=== PATIENT | male | born 1950 | race Caucasian/White ===

== ENCOUNTER → 2017-07-08 | Outpatient (CLI) | payer BC, MEDICARE ==
[~2017-07-08] MED LIST: ASPI1TAB57 PO; ASPI81TA82 PO; COMMODE 3-IN-11 MIS; HYDR-3129 PO; HYDR-3580 PO; HYDR-3799 PO; HYDR10TA23 PO; HYDR12.56 PO; LISI-515 PO; LISI40TA PO; METO25CR PO; METO25TA3 PO; MULT-65 PO; NITR0.4S SL; OMEP20TA93 PO; OMPR20CCR PO; POTA10CA PO; ROSU40 PO; SIMV40TA PO; TORS20TA PO; TRAM50TA PO; VITA100021 SL; WALKER WHEELS/F1 MIS; XARE10TA PO; XARE20TA PO; Z.0.COMMODE-3:1; Z.0.WALKERFRONT
[2017-07-08 09:41] LABS: AUTOMATED NEUTROPHIL # 5.8 TH/MM3 (1.8-7.7); BASOPHIL % 0.6 % (0.0-2.0); EOSINOPHIL # 0.1 TH/MM3 (0-0.4); EOSINOPHIL % 1.6 % (0.0-4.0); HEMATOCRIT 41.1 % (39.0-51.0); HEMOGLOBIN 14.7 GM/DL (13.0-17.0); LYMPH % 10.5 % (9.0-44.0); LYMPHOCYTE # 0.8 TH/MM3 (1.0-4.8); MEAN CELL VOLUME 98.5 FL (80.0-100.0); MEAN CORPUSCULAR HEMOGLOBIN 35.3 PG (27.0-34.0); MEAN CORPUSCULAR HGB CONC 35.8 % (32.0-36.0); MEAN PLATELET VOLUME 8.3 FL (7.0-11.0); MONOCYTE # 0.8 TH/MM3 (0-0.9); NEUT % 77.3 % (16.0-70.0); PLATELET COUNT 286 TH/MM3 (150-450); RED BLOOD COUNT 4.17 MIL/MM3 (4.50-5.90); RED CELL DISTRIBUTION WIDTH 13.6 % (11.6-17.2); WHITE BLOOD COUNT 7.6 TH/MM3 (4.0-11.0)
[2017-07-08 09:43] LABS: INTERNATIONAL NORMALIZED RATIO 1.2 RATIO; PROTHROMBIN TIME - PATIENT 12.6 SEC (9.8-11.6)
[2017-07-08 09:54] LABS: BILIRUBIN, URINE NEG (NEG); BLOOD, URINE NEG (NEG); GLUCOSE,URINE NEG (NEG); HYALINE CAST, URINE 13 /lpf (RARE); KETONE, URINE NEG (NEG); MUCUS URINE FEW /lpf (OCC); NITRITE,URINE NEG (NEG); SQUAMOUS EPITHELIAL CELL URINE <1 /hpf (0-5); URINE COLOR LIGHT-YELLOW (YELLW/STRAW); URINE LEUKOCYTE ESTERASE NEG (NEG)
[2017-07-08 10:00] LABS: BICARBONATE 27.1 MEQ/L (21.0-32.0); CALCIUM 9.3 MG/DL (8.5-10.1); CREATININE 1.37 MG/DL (0.60-1.30)
--- NOTE | 2017-07-08 21:29 | EKG ---
Date Performed: 07/08/2017 Time Performed: 08:28:56 PTAGE: 66 years EKG: Sinus rhythm . Left axis deviation Possible ventricular pacemaker rhythm Abnormal ECG PREVIOUS TRACING : 07/25/2014 09.13 DOCTOR: Kadeem Salazar Interpretating Date/Time 07/08/2017 21:28:28
== END ==
LOC: CPRE 08:48
PROVIDERS: ATTEND Orthopaedic Surgery Orthopaedic Surgery of the Spine
DX: Z01.810 Encounter for preprocedural cardiovascular examination (principal); Z01.812 Encounter for preprocedural laboratory examination; M16.12 Unilateral primary osteoarthritis, left hip; R94.31 Abnormal electrocardiogram [ECG] [EKG]; Z79.01 Long term (current) use of anticoagulants
CPT/HCPCS: 36415; 80048; 81001; 85025; 85610; 85730; 93005

== ENCOUNTER 2017-07-19 06:27 | Inpatient (IN) | payer BC, MEDICARE ==
[~2017-07-19] VITALS: Ht 172.7 cm; Wt 117.2 kg
[~2017-07-19 06:27] MED LIST changes: -COMMODE 3-IN-11 MIS; -HYDR-3580 PO; -WALKER WHEELS/F1 MIS; -XARE10TA PO
[2017-07-19] MEDS ORDERED: GENTAMICIN SULFATE 80 MG/2 ML VIAL ONE (06:37)
[2017-07-19] MEDS ORDERED: ceFAZolin 2 GM PREMIX 50 ML IV SCH (07:15)
[2017-07-19] MEDS ORDERED: METOPROLOL TARTRATE 25 MG TAB PO PRN (07:15)
[2017-07-19] MEDS ORDERED: VANCOMYCIN 1000 MG/NS 250 ML (for <70 kg) IV SCH ×2 (07:15)
[2017-07-19] MEDS ORDERED: CHLORHEXIDINE GLUCONATE 4% SOLN 120 ML BTL TOPICAL SCH (07:15)
[2017-07-19] MEDS ORDERED: CHLORHEXIDINE GLUCONATE 2 % 1 PACK (2 CLOTHS) TOPICAL PRN (07:15)
[2017-07-19] MEDS ORDERED: POVIDONE IODINE 5% (ANTISEPSIS KIT) 4 APPLICATIONS EACH NARE PRN (07:15)
[2017-07-19] MEDS ORDERED: SODIUM CHLORID 0.9% 500 ML IV PRN (07:15)
[2017-07-19] MEDS ORDERED: LACTATED RINGER'S 1000 ML IV PRN (07:15)
[2017-07-19] MEDS ORDERED: ACETAMINOPHEN 1000 MG/100 ML 100 ML IV ONE (08:27)
[2017-07-19] MEDS ORDERED: TRANEXAMIC ACID IV SCH (09:00)
[2017-07-19] MEDS ORDERED: EXPAREL PERI-ARTICULAR INJECTION (TOTAL VOL. 60 ML) P-ARTICULR SCH ×2 (09:00)
[2017-07-19] MEDS ORDERED: SODIUM CHLORIDE 0.9% IV SCH (09:00)
[2017-07-19] MEDS ORDERED: NITROGLYCERIN 0.4 MG SL 25 TABS/BTL SL PRN (11:30)
--- NOTE | 2017-07-19 11:41 | PD.OP ---
cc: Sylvester Rodriguez MD Operative Report Date of Surgery: Jul 19, 2017 Preoperative Diagnosis: Osteoarthritis left hip. Avascular necrosis left hip Postoperative Diagnosis: Same Procedure: Left total hip replacement arthroplasty, direct anterior exposure Anesthesia: Gen. Surgeon: Sylvester Rodriguez [employer] Operator(s): ROSETTA Rangel Operation and Findings: EBL: 400 cc INDICATION: This patient presents with significant hip pain related to pain related to osteoarthritis of the left hip and suspect for avascular necrosis.. Despite extensive conservative care this patient continues to be painful and now presents for surgical treatment. NOTE: [place] Rangel PA-C was present for the entire surgical procedure as my assistant teacher primary. In my medical opinion her skill and care was necessary for the proper management of this patient. COMPONENTS: COMPANY: [employer] CUP: [place], 54 mm, 100 series, gription surface LINER: Altrx 36 mm, neutral STEM: [place], size 14, high offset, hydroxyapatite-coated HEAD: 36 mm, +5, metal, 12/14 taper PROCEDURE: This patient was brought to the operating room and anesthetized in the supine position and positioned on the fracture table with both legs held extended. The left hip and leg was scrubbed with alcohol followed by Hibiclens followed by ChloraPrep and draped sterilely. Antibiotics were given within routine time window and a timeout was done. A 4 inch incision was made starting 2 cm distal and 2 cm lateral to the anterior superior iliac spine. The fascia shalonda was opened longitudinally. The interval between the fascia shalonda and the rectus was opened down to the capsule of the hip joint. Retractors were positioned allowing good visualization of the capsule. This was opened longitudinally and flaps were created. Stay sutures were utilized. Exposure was excellent. The neck was cut at the proper location using fluoroscopy as a guide. The head was removed. Deep retractors were positioned allowing good visualization of the acetabulum. Acetabulum was deepened down to the floor starting with a proper size reamer and reaming up to 53 mm. A trial was utilized. Fluoroscopy was used to check position and confirmed satisfactory alignment. The rim was reamed with a 54 mm reamer and the final cup was positioned in approximately 20 of anteversion and 40-45 of abduction. Position was satisfactory. A single hole eliminator was positioned followed by the final liner. The lifting hook was utilized. The leg was dropped to the floor, maximally externally rotated and brought across the midline. Retractors were positioned. A box osteotome was utilized followed by progressive broaching to the proper stem size. Trial reduction showed excellent alignment and fit. With 60 of external rotation the leg was dropped to the floor without evidence of anterior subluxation. The wound was irrigated. The final stem was inserted and was found to be very stable. The final reduction using the final head. Stability was as previously noted. Intraoperative x-rays were taken. The wound was irrigated copiously. Hemostasis was controlled. Local anesthesia was utilized. The capsule was repaired with #2 Tycron sutures. The fascia shalonda was repaired with running 0 PDS on a loop. Subcutaneous tissue was approximated with 2-0 Vicryl and skin with running intradermal 3-0 Vicryl followed by Steri-Strips. A sterile dressing was applied. The patient was awakened and taken to the recovery room in satisfactory condition. FINDINGS: We inspect the femoral head after removal. There was clear evidence of a completely necrotic section of the femoral head. The final fit was excellent. There was no complication that was appreciated. Sylvester Rodriguez MD Jul 19, 2017 11:41
[2017-07-19] MEDS ORDERED: ACETAMINOPHEN/HYDROcodone 325 MG/7.5 MG TAB PO PRN (11:45)
[2017-07-19] MEDS ORDERED: NALOXONE HCL 0.4 MG/ML AMP IV PUSH PRN (11:45)
[2017-07-19] MEDS ORDERED: XARE10TA PO (11:47)
[2017-07-19] MEDS ORDERED: HYDR-3580 PO (11:47)
--- NOTE | 2017-07-19 11:52 | RADRPT ---
EXAM DATE/TIME: 07/19/2017 10:12 [place] COMPARISON: No previous studies available for comparison. INDICATIONS : Left total hip arthroplasty. MEDICAL HISTORY : None. SURGICAL HISTORY : Right total hip arthroplasty. ENCOUNTER: Initial ACUITY: 1 day PAIN SCORE: Non-responsive. LOCATION: Left hip FINDINGS: There is total hip prosthesis on C-arm H. stills which appears to be well-seated w ith surgical minnie in place CONCLUSION: Well seated total hip prosthesis Francis Ureña MD on July 19, 2017 at 11:48 Board Certified Radiologist. This report was verified electronically.
[2017-07-19] MEDS ORDERED: MISCELLANEOUS NURSING INFORMATION XX PRN (12:00)
[2017-07-19] MEDS ORDERED: Post-op Orders (for Pharmacy) XX ONE (12:00)
[2017-07-19] MEDS ORDERED: DO NOT ADM ANY ANTICOAGULANT DRUGS PRN (12:01)
[2017-07-19] MEDS ORDERED: *morphine SULFATE 4 MG/ML PERIprocedure ONLY ONE ×3 (12:12→15:24)
[2017-07-19] MEDS: LACTATED RINGER'S 1000 ML INJ 1,000 ML IV SCH ×2 (12:30→23:04)
[2017-07-19] MEDS ORDERED: *morphine SULFATE 10 MG/ML PERIprocedure ONLY ONE (13:18)
[2017-07-19 18:25] VITALS: BP 113/62; PULSE 65; RESP 17; TEMP 97.4; O2SAT 97
[2017-07-19] MEDS: ACETAMINOPHEN/HYDROcodone 325 MG/7.5 MG TAB PO PRN ×2 (18:31→22:59)
[2017-07-19 20:00] VITALS: BP 109/60; PULSE 71; RESP 17; TEMP 98.3; O2SAT 95
[2017-07-19] MEDS: MAGNESIUM HYDROXIDE SUSP 30 ML CUP PO SCH ×2 (20:05→20:19)
[2017-07-19] MEDS: hydrALAZINE HCL 25 MG TAB PO SCH (20:18)
[2017-07-19] MEDS: PRAVASTATIN SOD 80 MG TAB PO SCH (20:18)
[2017-07-19] MEDS: SENNOSIDES 8.6 MG TAB PO SCH (20:19)
[2017-07-19] MEDS ORDERED: WALKER WHEELS/F1 MIS (20:40)
[2017-07-19] MEDS ORDERED: COMMODE 3-IN-11 MIS (20:41)
--- NOTE | 2017-07-19 20:41 | HHI.DCPOC ---
Discharge Care Plan Diagnosis: (1) Avascular necrosis of bone of left hip Your Health Problems Are: Difficulty with ADL Incision/Drains Swelling Goals to Promote Your Health * To prevent worsening of your condition and complications * To maintain your health at the optimal level Directions to Meet Your Goals Take your medications as prescribed Follow your dietary instruction Follow activity as directed Keep your appointments as scheduled Take your immunizations and boosters as scheduled If your symptoms worsen call your PCP, if no PCP go to Urgent Care Center or Emergency Room Smoking is Dangerous to Your Health. Avoid second hand smoke Call the 24-hour hour crisis hotline for domestic abuse at Rosa Whatley Jul 19, 2017 20:41
--- NOTE | 2017-07-19 20:43 | HHI.FF ---
Face to Face Verification Diagnosis: (1) Avascular necrosis of bone of left hip Physical Therapy Gait training, Safety evaluation, Transfer training, bed to chair Hip: Total hip, Protocol: Left, Progress to weight bearing Left LE Weight Bearing: WB as tolerated Additional Instructions PT 4 days/wk for 2 weeks. WBAT Left LE. Anterior ROLANDO protocol. Walker as needed. Nursing RN Days per Week: 2 x Week(s): 1 Dressing Changes: Do not change dressing Additional Instructions Vitals assessment. Dressing assessment - do not change unless saturated or erythema. I have seen patient Dequan Vaughan on 07/19/17. My clinical findings support the need for the requested home health care services because: Limited ability to care for self High risk of falls I certify that my clinical findings support that this patient is homebound because: Post-op weakness Unsteady gait/balance Rosa Whatley Jul 19, 2017 20:43
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
[2017-07-19] MEDS: RIVAROXABAN 10 MG TAB PO SCH (23:00)
[2017-07-20] VITALS (7 sets, daily range): BP systolic 101–140; BP diastolic 62–74; PULSE 65–73; RESP 17; TEMP 97.7–99.3; O2SAT 93–99
[2017-07-20] MEDS: ACETAMINOPHEN/HYDROcodone 325 MG/7.5 MG TAB PO PRN ×3 (04:18→12:49)
[2017-07-20] MEDS: METOPROLOL TARTRATE 25 MG TAB PO SCH (08:43)
[2017-07-20] MEDS: LISINOPRIL 20 MG TAB PO SCH (08:43)
[2017-07-20] MEDS: POTASSIUM CHLORIDE 10 MEQ CAP PO SCH (08:43)
[2017-07-20] MEDS: TORSEMIDE 20 MG TAB PO SCH (08:43)
[2017-07-20] MEDS: hydrALAZINE HCL 25 MG TAB PO SCH ×2 (08:43→19:51)
[2017-07-20] MEDS: PANTOPRAZOLE SOD 20 MG DELAYED RELEASE TAB PO SCH (08:43)
[2017-07-20] MEDS: MAGNESIUM HYDROXIDE SUSP 30 ML CUP PO SCH ×2 (08:44→19:51)
[2017-07-20 09:27] LABS: HEMATOCRIT 33.9 % (39.0-51.0); HEMOGLOBIN 11.6 GM/DL (13.0-17.0)
[2017-07-20] MEDS ORDERED: MISCELLANEOUS PHARMACY INFORMATION XX ONE (12:00)
[2017-07-20] MEDS: LACTATED RINGER'S 1000 ML INJ 1,000 ML IV SCH (12:45)
--- NOTE | 2017-07-20 13:11 | PD.ORT.PN ---
Subjective Subjective Remarks Doing well but more left hip and thigh pain than expected. He states he will occasionally get shooting pains to the foot. He denies any sensory loss. His appetite is 'ok'. He has urinated but has not had BM. He has questions about surgery. No new CP or SOB. Objective Vitals Vital Signs Date Time Temp Pulse Resp B/P (MAP) Pulse Ox O2 Delivery O2 Flow Rate FiO2 07/20/17 10:47 99 Nasal Cannula 2.00 07/20/17 09:13 18 07/20/17 08:00 97.7 66 17 134/68 (90) 99 07/20/17 04:25 99.2 72 17 138/72 (94) 93 07/20/17 00:10 99.0 70 17 109/74 (86) 94 07/19/17 20:00 98.3 71 17 109/60 (76) 95 07/19/17 18:25 97.4 65 17 113/62 (79) 97 07/19/17 18:00 98.5 64 15 111/56 (74) 96 Nasal Cannula 2 07/19/17 17:45 71 15 104/56 (72) 96 Nasal Cannula 2 07/19/17 17:15 62 15 110/53 (72) 96 Nasal Cannula 2 07/19/17 16:45 79 15 120/59 (79) 97 Nasal Cannula 2 07/19/17 16:15 60 15 129/60 (83) 97 Nasal Cannula 2 07/19/17 15:45 69 15 122/94 (103) 95 Nasal Cannula 2 07/19/17 15:15 63 16 116/58 (77) 98 Nasal Cannula 2 07/19/17 14:45 61 17 116/56 (76) 99 Nasal Cannula 2 07/19/17 14:15 62 15 121/64 (83) 99 Nasal Cannula 2 07/19/17 13:45 62 15 115/56 (75) 98 Nasal Cannula 2 07/19/17 13:30 61 16 129/60 (83) 99 Nasal Cannula 2 I/O 07/19/17 07/19/17 07/19/17 07/20/17 07/20/17 07/20/17 07:00 15:00 23:00 07:00 15:00 23:00 Intake Total 2150 ml 1185 ml 360 ml 1468 ml Output Total 400 ml 550 ml 450 ml Balance 1750 ml 635 ml -90 ml 1468 ml Intake Oral 785 ml 360 ml IV Total 2150 ml 1468 ml Other 400 ml Output Urine Total 550 ml 450 ml Estimated Blood Loss 400 ml # Voids 0 # Bowel Movements 0 0 Result Diagram: 07/20/17 0900 Procedures Left total hip arthroplasty, direct anterior approach Objective Remarks Sitting in wheelchair headed to PT class With his NAD VSS LLE Hip dressing c/d/i, minimal drainage, mild swelling, some warmth but no erythema +motor at, +sens, +nvi Neg homans distal Assessment & Plan Ortho Post Op Day #: 1 Problem List: (1) Avascular necrosis of bone of left hip ICD Codes: M87.052 - Idiopathic aseptic necrosis of left femur Assessment and Plan pod#1 s/p L GREER, anterior Ortho stable. PO pain control as needed. Xarelto 10mg qd. he was on 20mg preop. Hold dressing changes unless saturated. PT - WBAT LLE. Anterior greer precautions. Ice to left hip. IS encouraged. D/C kita, [facility] thurs or fri. DME written. Rosa Whatley Jul 20, 2017 13:11
[2017-07-20] MEDS ORDERED: BISACODYL EC 5 MG TABEC PO PRN (13:15)
[2017-07-20] MEDS ORDERED: oxyCODONE/ACETAMINOPHEN 5 MG/325 MG TAB PO PRN (13:15)
[2017-07-20] MEDS: SENNOSIDES 8.6 MG TAB PO SCH (19:51)
[2017-07-20] MEDS: PRAVASTATIN SOD 80 MG TAB PO SCH (19:52)
[2017-07-20] MEDS: oxyCODONE/ACETAMINOPHEN 5 MG/325 MG TAB PO PRN (20:54)
[2017-07-21] MEDS: RIVAROXABAN 10 MG TAB PO SCH (00:17)
[2017-07-21 00:25] VITALS: BP 114/64; PULSE 80; RESP 17; TEMP 98.3; O2SAT 95
[2017-07-21] MEDS: LACTATED RINGER'S 1000 ML INJ 1,000 ML IV SCH (00:26)
[2017-07-21] MEDS: oxyCODONE/ACETAMINOPHEN 5 MG/325 MG TAB PO PRN ×2 (03:21→09:08)
[2017-07-21 07:53] VITALS: BP 106/59; PULSE 73; RESP 17; TEMP 98.4; O2SAT 96
[2017-07-21] MEDS: MAGNESIUM HYDROXIDE SUSP 30 ML CUP PO SCH (09:00)
[2017-07-21] MEDS: POTASSIUM CHLORIDE 10 MEQ CAP PO SCH (09:04)
[2017-07-21] MEDS: PANTOPRAZOLE SOD 20 MG DELAYED RELEASE TAB PO SCH (09:05)
[2017-07-21] MEDS: METOPROLOL TARTRATE 25 MG TAB PO SCH (09:05)
[2017-07-21] MEDS: hydrALAZINE HCL 25 MG TAB PO SCH (09:05)
[2017-07-21] MEDS: TORSEMIDE 20 MG TAB PO SCH (09:05)
[2017-07-21] MEDS: LISINOPRIL 20 MG TAB PO SCH (09:05)
--- NOTE | 2017-07-21 12:33 | PD.ORT.PN ---
Subjective Subjective Remarks Doing well. Sitting in a chair. Very comfortable Objective Vitals Vital Signs Date Time Temp Pulse Resp B/P (MAP) Pulse Ox O2 Delivery O2 Flow Rate FiO2 07/21/17 07:53 98.4 73 17 106/59 (75) 96 07/21/17 00:25 98.3 80 17 114/64 (81) 95 07/20/17 20:15 99.3 73 17 140/71 (94) 95 07/20/17 16:00 98.9 67 17 101/62 (75) 94 I/O 07/20/17 07/20/17 07/20/17 07/21/17 07/21/17 07/21/17 07:00 15:00 23:00 07:00 15:00 23:00 Intake Total 360 ml 2028 ml 360 ml 360 ml Output Total 450 ml Balance -90 ml 2028 ml 360 ml 360 ml Intake Oral 360 ml 560 ml 360 ml 360 ml IV Total 1468 ml Output Urine Total 450 ml # Voids 6 1 2 # Bowel Movements 0 0 1 Result Diagram: 07/20/17 0900 Procedures Left total hip arthroplasty, direct anterior approach Objective Remarks Sitting in a chair NAD VSS LLE Hip dressing c/d/i, minimal drainage, mild swelling, some warmth but no erythema +motor at, +sens, +nvi Neg homans distal Assessment & Plan Ortho Post Op Day #: 2 Problem List: (1) Avascular necrosis of bone of left hip ICD Codes: M87.052 - Idiopathic aseptic necrosis of left femur Assessment and Plan pod#2 s/p L ROLANDO, anterior Ortho stable. PO pain control as needed. Xarelto 10mg qd. After 7 more days, convert back to 20 mg daily as he was on preop. No dressing change. Home healthcare. Home physical therapy. Walker. Weightbearing as tolerated. No dressing change. Return in 2 weeks. Discharge to home Sylvester Rodriguez MD Jul 21, 2017 12:33
== END 2017-07-21 11:20 | disposition home health service (06) | DRG 470 ==
LOC: HSDI 06:27 → N06A 18:09
PROVIDERS: ADMIT Orthopaedic Surgery Orthopaedic Surgery of the Spine; ATTEND Orthopaedic Surgery Orthopaedic Surgery of the Spine
PROC: 0SRB02A Replacement of Left Hip Joint with Metal on Polyethylene Synthetic Substitute, Uncemented, Open Approach (ICD-10-PCS; principal; 2017-07-19 09:09)
DX: M16.12 Unilateral primary osteoarthritis, left hip (principal); M87.9 Osteonecrosis, unspecified; Z96.641 Presence of right artificial hip joint
CPT/HCPCS: 73502; 76000; 85014; 85018; 86850; 86900; 86901; 86920; 94150; C1776; C9290; J0131; J0690; J1580; J2270; J3010; J3370; J7050; J7120